=== PATIENT | female | born 1955 | race Caucasian/White ===

== ENCOUNTER 2020-04-02 08:37 | Outpatient (CLI) | payer OTHER, SELFPAY ==
--- NOTE | 2020-04-02 08:41 | ECG_ITS ---
Measurements Intervals Black Rate: 82 P: 55 WI: 182 QRS: 109 QRSD: 149 T: -6 QT: 405 QTc: 473 Interpretive Statements SINUS RHYTHM RIGHT BUNDLE BRANCH BLOCK INFERIOR INFARCT, AGE INDETERMINATE ABNORMAL ECG Electronically Signed On 04-02-2020 9:09:59 CDT by Wale Brand D.O.
[2020-04-02 09:13] LABS: Hematocrit 38.8 % (37.0-47.0); Hemoglobin 13.1 g/dL (12.0-15.0)
[2020-04-02 09:28] LABS: Anion Gap 6 mmol/L (8-16); Blood Urea Nitrogen 11 mg/dL (7-17); Calcium 9.8 mg/dL (8.4-10.2); Carbon Dioxide 30 mmol/L (22-30); Chloride 100 mmol/L (98-107); Estimated Glomerular Filt Rate > 60; Glucose 85 mg/dL (65-105); Potassium 4.1 mmol/L (3.4-5.0); Sodium 136 mmol/L (137-145)
== END 2020-04-02 08:38 | disposition home or self-care (01) ==
PROVIDERS: Anesthesiology; Visit Provider Surgery Plastic and Reconstructive Surgery
DX: Z01.818 Encounter for other preprocedural examination (principal); I10 Essential (primary) hypertension; R94.31 Abnormal electrocardiogram [ECG] [EKG]; Z79.899 Other long term (current) drug therapy; Z98.890 Other specified postprocedural states
CPT/HCPCS: 36415; 80048; 85014; 85018; 93005

== ENCOUNTER 2020-04-04 07:22 | Outpatient (CLI) | payer OTHER, SELFPAY ==
[2020-04-04 14:01] LABS: SARS-CoV-2 RNA PCR Negative
== END 2020-04-04 07:23 | disposition home or self-care (01) ==
LOC: ANHCOVIDDT 07:23
PROVIDERS: Visit Provider Surgery Plastic and Reconstructive Surgery
DX: Z01.812 Encounter for preprocedural laboratory examination (principal); Z20.828 Contact with and (suspected) exposure to other viral communicable diseases
CPT/HCPCS: 87635; C9803; U0003

== ENCOUNTER 2020-04-07 01:39 | Day surgery (SDC) | payer OTHER, SELFPAY ==
[2020-04-01 15:02] VITALS: BMI 24.5
[2020-04-07] VITALS (16 sets, daily range): BP systolic 101–158; BP diastolic 39–103; PULSE 80–101; RESP 12–28; TEMP 35.6–37.1; O2SAT 95–100
[2020-04-07 06:28] LABS: Urine Cotinine NEGATIVE
[2020-04-07] MEDS: LACTATED RINGERS 1,000 ML 30 ML IV CONT ×2 (06:45→13:51)
--- NOTE | 2020-04-07 06:48 | WPDHPUPDATE1 ---
History and Physical Update Update Date/Time: 04/07/20 06:48 History and Physical has been reviewed, including an updated exam of the patient. There are NO changes in the patient's condition. Today we had a lengthy discussion about realistic expectations. What we can and cannot accomplish. Risks, benefits, and alternatives have been discussed and questions answered. This included but was not limited to rate associated with this procedure. I wanted to be sure she was well informed prior to proceeding and she was able to repeat this information to me including rate of procedure. Patient agrees to proceed with procedure and would like to proceed.
[2020-04-07 06:55] LABS: Glucose Point of Care 102 (65-105)
--- NOTE | 2020-04-07 07:09 | WPDANESEPPF ---
Anes - Initial Pre Proc Eval Procedure: Operation Date: 04/07/20 07:30 Proposed Procedures p Posterior Body Lift, Bilateral Medial Thigh Lift, Estonian Butt Lift - Eloy Marquez MD s Mid Back Bra Line Skin Excision - Eloy Marquez MD Date/Time: 04/07/20 07:09 Surgeon: Eloy Marquez MD Pre Op Diagnosis: Skin Laxity Patient Data Age: 64 Gender: F Height: 5 ft 6 in Weight: 69 kg Allergies Allergy/AdvReac Type Severity Reaction Status Date / Time adhesive tape Allergy Rash Verified 04/01/20 14:51 Sulfa (Sulfonamide Allergy rash Verified 04/01/20 14:51 Antibiotics) codeine AdvReac Migraine Verified 04/01/20 14:51 Home Medications Medication Instructions Recorded Confirmed Type Bifidobacterium infantis 4 mg 4 mg PO DAILY 08/26/19 04/01/20 History capsule cetirizine 5 mg-pseudoephedrine ER 1 tablet PO QAM 08/26/19 04/01/20 History 120 mg tablet,extended release,12hr famotidine 20 mg tablet 20 mg PO QAM 08/26/19 04/01/20 History hydrochlorothiazide 25 mg tablet 25 mg PO QAM 08/26/19 04/01/20 History lisinopril 10 mg tablet 10 mg PO QAM 08/26/19 04/01/20 History nabumetone 500 mg tablet 500 mg PO BID 08/26/19 04/01/20 History pantoprazole 40 mg tablet,delayed 40 mg PO QAM 08/26/19 04/01/20 History release potassium chloride 10 mEq 10 meq PO DAILY 08/26/19 04/01/20 History capsule,extended release rizatriptan 10 mg tablet 10 mg PO ONCE PRN 08/26/19 04/01/20 History albuterol sulfate 2 puff INHALATION Q4-6H PRN 04/01/20 04/01/20 History docusate sodium 100 mg capsule 100 mg PO DAILY #14 cap 04/03/20 Rx ondansetron HCl 4 mg tablet 4 mg PO Q8H #28 tablet 04/03/20 Rx hydrocodone 10 mg-acetaminophen 1 tablet PO Q6H PRN #15 tablet 04/06/20 04/06/20 Rx 325 mg tablet Laboratory Tests 04/07/20 04/07/20 06:13 06:49 POC Capillary Glucose 102 mg/dl mg/dl (65-105) Cotinine Negative Patient hx anesthesia problems: post op nausea/vomiting Family hx anesthesia problems: none PMFSH Past Medical History Medical History History of skin cancer of unknown type unknown multiple excisions Hx of migraines Hypertension Surgical History Surgical History History of breast augmentation 1989 and 1999 History of carpal tunnel release of both wrists History of cholecystectomy 2006 History of cosmetic plastic surgery Breast Augmentation 1989, 1999 Lift Style Face Lift 2008 Lipo abd 2009 upper abd skin excision 2009 History of elbow surgery cubital - 2016 History of hip replacement, total 2017 History of hysterectomy 1984 History of melanoma excision back History of oral surgery 2008 History of rotator cuff surgery left - 2016 History of spinal surgery disctectomy 2018 vertebroplasty - 2015 History of tonsillectomy 1973 Social History Social History Smoking status: Never smoker Alcohol intake: current Drinks per week: 3 Alcohol use details: WINE Substance use: never Living arrangements: with family Spiritual care concerns: No Anes - Eval Final PreProcedure Day of Procedure 04/07/20 07:09 Patient weight: normal Heart: regular rate and rhythm Lungs: clear to auscultation Airway: Mallampati scale class II Neurological: alert and oriented Last oral intake: >/= 8 hours ASA classification: II Emergent: no Anesthetic plan: proceed Anesthesia type and monitoring: general ETT and standard monitoring Informed Consent: The patient's anesthetic plan and its attendant risks and benefits were discussed with the patient/family/POA. Questions were solicited and answers provided to the satisfaction of the patient/family/POA.
[2020-04-07] MEDS: SCOPOLAMINE 1.5 MG PATCH TRANSDERM (07:25)
[2020-04-07] MEDS: ceFAZolin 2 GM/D5W 50 ML 2 GM/50 ML BAG IVPB (07:31)
--- NOTE | 2020-04-07 10:36 | SUR.OPER ---
Upper body Aiyana Hugger used during bilateral medial thigh lift. When patient was placed prone, Aiyana Hugger was placed under buttocks over bilateral legs with lower body Aiyana Hugger. Aiyana Hugger number 2 was used.
[2020-04-07] MEDS: ceFAZolin SODIUM 1 GM VIAL 2 GM IV PUSH (11:54)
--- NOTE | 2020-04-07 13:43 | P.OP_ITS ---
Procedure Note - Detailed Date of procedure: 04/07/20 Pre-op diagnosis: Skin Laxity Post-op diagnosis: same Procedure performed: 1. Bilateral medial thigh lift 2. Bra line / upper back excision 3. Posterior body lift (lower body lift) 4. BBL ( [place] butt lift) Description of procedure: Risks, benefits, alternatives were discussed in extensive detail preoperatively. I want her to be very realistic about the risks involved as well as expectations. She provided examples of the look she likes and explained to her that she has selected images that are not obtainable as most of these were significantly younger than her. She states she understands and she is very realistic about what can and cannot be accomplished. Made sure answered all of her questions to her satisfaction and consent obtained. She was marked in the preoperative holding area with her verification. She was taken to the operating room placed supine on the operating room table. Anesthesia provided by anesthesiology and prepped and draped in a standard sterile fashion. Surgical time-out was taken. I made stab incisions along the medial thigh and tumescent solution was used. I gave adequate time for hemostasis. I then used a 4 mm basket cannula based on the S.A.F.E. technique using a rolling pinch on the medial thigh and in particular the planned resection area completely deep fat in this area. I was saving the fat using a gravity separation device. I pinched to make sure the planned resection was appropriate. A 10 blade used to make the incision in a cut as you go strip avulsion technique from proximal to distal the tissue was completely removed in stapled into place. I then closed with 2-0 Vicryl followed by 3-0 strata fix in a running subcuticular 4-0 Monocryl and Steri-Strips. She was then transferred to a bed. We prepared and then placed her in a prone position on the table with care taken to protect of all pressure points. stab incisions were made using 11 blade along the planned resection areas. I tumesced with a tumescent solution the entire back. I then completed suction lipectomy again with a 4 mm basket cannula using principals of S.A.F.E. Technique. This was to a rolling pinch test. This also was saved in a gravity separation device. Once we had adequate separation the central portion of the tissue the fatty portion was used from the gravity separation device. He has some 50 cc syringes and injected using a 4 mm basket cannula on power. Made sure I states superficial well above the fascia. This was done to contour based on preoperative planning. One size happy with the contour 10 blade used to make the incision on posterior body lift as well as along the bra line. This tissue was resected and I closed in many layers to obliterate all space using a 2-0 Vicryl followed by 3-0 strata fix and running subcuticular 4-0 Monocryl. Tissue glue was placed.On the posterior body lift portion I did place a drain just superior to the gluteal cleft just prior to closure. Thighs were covered with top of foam and Steve wrap. I placed topical mom the back and used an Steve wrap. She was transferred to a bed in this soon as possible placed in a prone position. Anesthesia: [facility] Surgeon: Eloy Marquez MD Estimated blood loss (mL): 75 Urine output (mL): 400 Drains: Yes (15 griselda) Packing: No Pathology: none sent Complications: No immediate complications Condition: stable Disposition: PACU Findings: Lipoaspirate 1500cc Fat grafting to buttocks - R: 450cc L: 450cc
[2020-04-07] MEDS: HYDROmorphone HCL INJ (*CRX) 1 MG/ML SYR 0.5 MG IV PUSH ×3 (14:11→14:39)
--- NOTE | 2020-04-07 14:18 | SUR.PHASEI ---
Proned patient now that she is more awake.
--- NOTE | 2020-04-07 14:58 | SUR.PHASEI ---
PT C/O HER HAIR IN HER FACE. LAYING PRONE. SURGICAL HAT PLACED ON. PT KEEPS RUBBING FACE ON PILLOW. OFFERED HAIR BAND. PT REFUSED. ENCOURAGED PT TO NOT RUB FACE ON PILLOW DUE TO SWELLING OF EYES, LIPS, FACE. ICE CHIPS GIVEN
[2020-04-07] MEDS: LACTATED RINGERS 1,000 ML 125 ML IV CONT (16:13)
[2020-04-07] MEDS: ONDANSETRON INJ 4 MG/2 ML VIAL IV PUSH ×2 (16:25→20:36)
[2020-04-07] MEDS: MORPHINE SULFATE (*CRX) 2 MG/ML INJ IV PUSH ×4 (16:38→23:12)
--- NOTE | 2020-04-07 16:47 | OBPPTRN ---
Patient transferred to room #284 per bed. Oriented to unit, room, information board. Patient verbalizes understanding.
[2020-04-07] MEDS: ENOXAPARIN 40 MG/0.4 ML SYRINGE SUB-Q (20:36)
[2020-04-08] MEDS: MORPHINE SULFATE (*CRX) 2 MG/ML INJ IV PUSH ×3 (01:31→07:31)
[2020-04-08] MEDS: LACTATED RINGERS 1,000 ML 125 ML IV CONT (01:31)
[2020-04-08 03:23] VITALS: BP 105/57; PULSE 82; RESP 18; TEMP 36.9; O2SAT 98
[2020-04-08] MEDS: oxyCODONE/ACETAMINOPHEN (*CRX) 5-325 MG TABLET PO ×3 (04:32→12:17)
[2020-04-08] MEDS: ONDANSETRON INJ 4 MG/2 ML VIAL IV PUSH (04:32)
[2020-04-08 07:20] VITALS: BP 125/73; PULSE 101; RESP 18; TEMP 36.7; O2SAT 100
--- NOTE | 2020-04-08 08:18 | WPDPN ---
Progress Note: A&P Assessment and Plan (1) Encounter for cosmetic surgery: Code(s): Z41.1 - Encounter for cosmetic surgery Status: Acute Assessment and Plan: She is doing well after medial thigh lift, posterior body lift, bra roll excision, and BBL. Will plan for discharge home later today when tolerating p.o. ambulating pain controlled. Will increase her pain medication to 1 every 3 hours of Percocet. We had a lengthy discussion about the care after discharge. What monitor for. She is going to call with any questions or concerns. (2) History of cosmetic plastic surgery: Code(s): Z98.890 - Other specified postprocedural states Status: Acute (3) History of cholecystectomy: Code(s): Z90.49 - Acquired absence of other specified parts of digestive tract Status: Acute (4) History of hip replacement, total: Code(s): Z96.649 - Presence of unspecified artificial hip joint Status: Acute (5) History of hysterectomy: Code(s): Z90.710 - Acquired absence of both cervix and uterus Status: Acute (6) GERD (gastroesophageal reflux disease): Code(s): K21.9 - Gastro-esophageal reflux disease without esophagitis Status: Acute (7) History of melanoma excision: Code(s): Z98.890 - Other specified postprocedural states; Z85.820 - Personal history of malignant melanoma of skin Status: Acute Review of Systems Review of Systems: All systems reviewed & are unremarkable except as noted in HPI and below Exam Narrative: Exam Narrative: Legs with a little bit of drainage. Soft. Buttocks with good color and capillary refill. Other incisions are healing well. No calf tenderness. Negative Homans. She is laying prone. Const: General: comfortable, no acute distress, alert and awake; No acute distress Orientation/consciousness: oriented to person HENMT: Head: normal to inspection Ears: external ears normal General nose exam: Normal external nose present Face and sinus: normal facial exam Eyes: General: appearance normal, both eyes and all related structures Periorbital: periorbital findings normal Eyelids: eyelids normal Conjunctivae: conjunctivae normal Neck: Neck: normal visual inspection Chest: Chest palpation & inspection: normal inspection of the chest Resp: Effort & Inspection: normal respiratory effort and able to speak in complete sentences GI: Inspection: normal to inspection Neuro: General: oriented to person Psych: Appearance: grossly normal Mental Status: mental status grossly normal Objective Data Vital Signs Vital Signs: Vital Signs - 24 hr 04/07/20 13:51 04/07/20 14:05 04/07/20 14:20 Temperature 35.6 C L 36.5 C Pulse Rate 99 97 101 H Respiratory Rate 12 18 28 H Blood Pressure 134/89 137/62 158/103 H Pulse Oximetry 100 100 97 04/07/20 14:33 04/07/20 14:45 04/07/20 15:05 Temperature Pulse Rate 95 90 90 Respiratory Rate 16 16 17 Blood Pressure 123/61 116/67 129/56 L Pulse Oximetry 100 99 97 04/07/20 15:31 04/07/20 15:45 04/07/20 16:00 Temperature 36.7 C Pulse Rate 87 89 91 Respiratory Rate 16 Blood Pressure 131/56 L 101/39 L Pulse Oximetry 95 95 96 04/07/20 16:15 04/07/20 16:30 04/07/20 17:15 Temperature Pulse Rate 92 81 91 Respiratory Rate Blood Pressure 115/74 119/69 127/76 Pulse Oximetry 96 95 96 04/07/20 17:30 04/07/20 19:17 04/07/20 23:14 Temperature 36.8 C 36.9 C Pulse Rate 86 83 92 Respiratory Rate 20 20 Blood Pressure 122/63 126/68 112/65 Pulse Oximetry 98 100 98 04/08/20 03:23 04/08/20 07:20 Temperature 36.9 C 36.7 C Pulse Rate 82 101 H Respiratory Rate 18 18 Blood Pressure 105/57 L 125/73 Pulse Oximetry 98 100 Intake/Output Intake/Output: Intake & Output 04/05/20 04/06/20 04/07/20 04/08/20 23:59 23:59 23:59 23:59 Intake Total 350 1400 Output Total 520 250 Balance -170 1150 Meds/Results Medications: Active Medications
--- NOTE | 2020-04-08 08:27 | PM.DS ---
DS: Admitting Diagnosis Admitting Diagnosis Admitting Diagnosis: Skin Laxity DS: Discharge Diagnosis Discharge Diagnosis (1) Encounter for cosmetic surgery: Code(s): Z41.1 - Encounter for cosmetic surgery Status: Acute Assessment and Plan: s/p Medial thigh lift, posterior body lift, bra roll excision, [place] butt lift. DS: Summary Time Spent with Patient Time attestation: Total time spent providing and/or coordinating discharge services:20 Exam Narrative: Exam Narrative: Legs with a little bit of drainage. Soft. Buttocks with good color and capillary refill. Other incisions are healing well. No calf tenderness. Negative Homans. She is laying prone. Const: General: comfortable, no acute distress, alert and awake; No acute distress Orientation/consciousness: oriented to person HENMT: Head: normal to inspection Ears: external ears normal General nose exam: Normal external nose present Face and sinus: normal facial exam Eyes: General: appearance normal, both eyes and all related structures Periorbital: periorbital findings normal Eyelids: eyelids normal Conjunctivae: conjunctivae normal Neck: Neck: normal visual inspection Chest: Chest palpation & inspection: normal inspection of the chest Resp: Effort & Inspection: normal respiratory effort and able to speak in complete sentences GI: Inspection: normal to inspection Neuro: General: oriented to person Psych: Appearance: grossly normal Mental Status: mental status grossly normal Discharge Plan Discharge Patient Disposition: Home, Self-Care Discharge Instructions: POST OPERATIVE DISCHARGE INSTRUCTIONS ELOY MARQUEZ M.D. [facility] [address] [place] [address] [address] for 24 hours after anesthesia and while you are taking pain medication. Take all prescribed medication as directed Diet as tolerated. No lifting or activity that raises blood pressure for 48 hours. Regular walking / ambulation. No showering until directed to. Once you shower do not take pain medication before showering as the combination of medication and heat may cause you to feel dizzy or pass out. No pools or tubs for 2 weeks. Call with any questions or concerns. No sitting or laying on buttocks for 2 weeks. Remove the Scopolamine patch that was placed behind your ear in 72 hours or less. Wash your hands after touching. Dressing Care: Wrap legs 23 hours per day with KAYDEN wraps. Continue binder for gentle back compression. If you have any questions or concerns, please call the office . If it is after hours you will be directed to the secondary special education teacher exchange. Shortness of breath, chest pain, or other medical emergency dial 911 / proceed to the Emergency Room. Stand Alone Forms: General Discharge Instructions Follow-up/Referrals: Eloy Marquez MD [Physician] - 1 Week Discharge Medications: New oxycodone-acetaminophen 5-325 mg Tablet 1 - 2 tablet PO Q6H PRN (Reason: Pain) Qty: 15 RF: 0 Continued lisinopril 10 mg tablet 10 mg PO QAM RF: 0 hydrochlorothiazide 25 mg tablet 25 mg PO QAM RF: 0 potassium chloride 10 mEq capsule, extended release 10 meq PO DAILY RF: 0 pantoprazole 40 mg tablet,delayed release (DR/EC) 40 mg PO QAM RF: 0 famotidine 20 mg tablet 20 mg PO QAM RF: 0 rizatriptan 10 mg tablet 10 mg PO ONCE PRN (Reason: Migraine Headache) RF: 0 Align 4 mg capsule 4 mg PO DAILY RF: 0 cetirizine-pseudoephedrine [Zyrtec-D] 5-120 mg tablet extended release 12 hr 1 tablet PO QAM RF: 0 nabumetone 500 mg tablet 500 mg PO BID RF: 0 albuterol sulfate 90 mcg/actuation HFA aerosol inhaler 2 puff INHALATION Q4-6H PRN (Reason: Dyspnea) RF: 0 ondansetron HCl [Zofran] 4 mg tablet 4 mg PO Q8H Qty: 28 RF: 0 Held hydrocodone-acetaminophen 10-325 mg tablet 1 tablet PO Q6H PRN (Reason:
[2020-04-08] MEDS: hydroCHLOROthiazide 25 MG TABLET PO (08:37)
[2020-04-08] MEDS: lisinopriL 10 MG TABLET PO (08:39)
[2020-04-08] MEDS: POTASSIUM CHLORIDE 10 MEQ TABLET.ER PO (08:39)
[2020-04-08] MEDS: FAMOTIDINE 20 MG TABLET PO (08:40)
[2020-04-08] MEDS: DOCUSATE SODIUM 100 MG CAPSULE PO (08:40)
[2020-04-08] MEDS: PANTOPRAZOLE 40 MG TABLET PO (08:41)
--- NOTE | 2020-04-08 12:37 | WPDANESPN ---
Anes - Prog Note Post-Op Date/Time: 04/08/20 12:37 Cardiovascular status: normal Respiratory status: normal Airway patency: baseline Mental status: baseline Post-Op hydration status: normal Vital Signs: Last Vital Signs Temp 36.7 C 04/08/20 07:20 Pulse 101 H 04/08/20 07:20 Resp 18 04/08/20 07:20 BP 125/73 04/08/20 07:20 Pulse Ox 100 04/08/20 07:20 Pain Score (VAS): Patient rated pain prior to PRN pain medication as 10/10 on self reported pain scale. Patient up at bedside at time of assessment. Following PRN medication patient stated pain more tolerable. Discussed prn pain schedule with patient and nurse, patient appeared satisfied with current regiment. Discussed early ambulation and use of incentive spirometer. I/O: Intake & Output 04/07/20 04/08/20 04/08/20 23:59 07:59 15:59 Intake Total 1400 Output Total 250 250 Balance 1150 -250 Post-procedural complaints: none (discussed pain management with patient and RN. ) Patient Feedback: Patient satisfied with anesthetic care.
== END 2020-04-08 14:55 | disposition home or self-care (01) ==
LOC: ANHSURGERY 07:33 → ANHOB2 15:59
PROVIDERS: Visit Provider Surgery Plastic and Reconstructive Surgery
PROC: (CPT 15832; principal; 2020-04-07 07:30)
PROC: (CPT 15833; 2020-04-07 07:30)
DX: Z41.1 Encounter for cosmetic surgery (principal); I10 Essential (primary) hypertension; K21.9 Gastro-esophageal reflux disease without esophagitis; Z96.649 Presence of unspecified artificial hip joint; Z90.710 Acquired absence of both cervix and uterus; Z79.899 Other long term (current) drug therapy; Z85.820 Personal history of malignant melanoma of skin; Z90.49 Acquired absence of other specified parts of digestive tract; Z98.890 Other specified postprocedural states
CPT/HCPCS: 15833; 15879; 15877; 15839; 80307; 99199; A9270; C9290; J0131; J0171; J0330; J0690; J1100; J1170; J1200; J1650; J2250; J2270; J2405; J2704; J3010; J7120

== ENCOUNTER 2020-08-24 08:54 | Outpatient (CLI) | payer OTHER, SELFPAY ==
[2020-08-24 09:14] LABS: Hematocrit 37.4 % (37.0-47.0); Hemoglobin 12.6 g/dL (12.0-15.0)
[2020-08-24 09:26] LABS: Anion Gap 6 mmol/L (8-16); Blood Urea Nitrogen 16 mg/dL (7-17); Calcium 9.9 mg/dL (8.4-10.2); Carbon Dioxide 30 mmol/L (22-30); Chloride 104 mmol/L (98-107); Estimated Glomerular Filt Rate > 60; Glucose 106 mg/dL (65-105); Potassium 3.9 mmol/L (3.4-5.0); Sodium 140 mmol/L (137-145)
== END 2020-08-24 08:55 | disposition home or self-care (01) ==
LOC: ANHSURGERY 08:58
PROVIDERS: Anesthesiology; Visit Provider Surgery Plastic and Reconstructive Surgery
DX: Z01.818 Encounter for other preprocedural examination (principal); Z79.899 Other long term (current) drug therapy
CPT/HCPCS: 36415; 80048; 85014; 85018

== ENCOUNTER → 2020-08-29 05:45 | Outpatient (CLI) | payer OTHER, SELFPAY ==
[2020-08-29 19:11] LABS: SARS-CoV-2 RNA PCR Negative
== END ==
PROVIDERS: Visit Provider Surgery Plastic and Reconstructive Surgery
DX: Z01.812 Encounter for preprocedural laboratory examination (principal); Z20.822 Contact with and (suspected) exposure to COVID-19
CPT/HCPCS: C9803; U0003; U0005

== ENCOUNTER 2020-09-01 00:35 | Day surgery (SDC) | payer OTHER, SELFPAY ==
[2020-08-20 14:42] VITALS: BMI 23.4
[2020-09-01] VITALS (15 sets, daily range): BP systolic 127–159; BP diastolic 65–92; PULSE 71–92; RESP 12–20; TEMP 36.3–37.6; O2SAT 94–100
--- NOTE | 2020-09-01 06:35 | WPDHPUPDATE1 ---
History and Physical Update Update Date/Time: 09/01/20 06:35 History and Physical has been reviewed, including an updated exam of the patient. There are NO changes in the patient's condition. Risks, benefits, and alternatives have been discussed and questions answered. Patient agrees to proceed with procedure.
--- NOTE | 2020-09-01 06:52 | P.OP_ITS ---
Procedure Note - Detailed Date of procedure: 09/01/20 Pre-op diagnosis: Skin Laxity Localized adiposity Post-op diagnosis: same Procedure performed: 1. Bilateral brachioplasty 2. Mons lift 3. Suction lipectomy abdomen Description of procedure: Preoperatively risks, benefits, alternatives were discussed in extensive detail. I want her to be very realistic about the risks involved as well as expectations. She has significant preoperative contour regular Muna abdomen from previous treatment. I had a lengthy conversation about realistic expectations of outcomes, the risks involved. I want her to be well informed this is a complex procedure with limitations to the outcome and significant risk involved. She must be willing to accept this to proceed. She is. All questions were answered to her satisfaction and consent obtained. She was marked in the preoperative holding area with her verification. Taken to the operating room placed supine on the operating room table. Anesthesia was provided by anesthesiology and prepped and draped in a standard sterile fashion. Surgical time-out was taken. I began in the arms. Stab incisions were made and I tumesced with a tumescent solution. Once adequate time for hemostasis I used a 4 mm basket cannula to complete suction lipectomy de fattening the central portion planned to be removed. A strip avulsion technique was completed from proximal to distal s tapling as we went. I then closed using 2-0 Vicryl followed by 3-0 strata fix and 4-0 Monocryl. This is followed by Steri-Strips. I proceeded to the abdomen. A thorough abdominal examination. Stab incision was made and I tumesced the abdomen as well as the mons region. Suction lipectomy was completed using a modification of S.A.F.E. technique in multiple planes and passes. There is de fattening of the Mons and primarily separation in equalization of the abdomen in order to get a good contour. In the upper abdomen there was a small volume of the fat in completed as well. I did this to a rolling pinch test in an effort to get a smooth contour to the best my ability. Ten blade was used to make the lower abdominal incision. I excised a wedge in order to elevate the mons based on her preoperative planning. This was closed with 2-0 Vicryl followed by 3-0 strata fix in a running subcuticular 4-0 Monocryl and tissue glue. Dressings were placed. She was woken taken to PACU without difficulty. All instrument sponge counts were correct at the end of the case. Anesthesia: [facility] Surgeon: Eloy Marquez MD Estimated blood loss (mL): 30 Drains: No Packing: No Pathology: none sent Complications: No immediate complications Condition: stable Disposition: PACU Findings: Lipoaspirate (total volume arms + abdomen) 1,000 cc
[2020-09-01 06:55] LABS: Urine Cotinine NEGATIVE
[2020-09-01] MEDS: LACTATED RINGERS 1,000 ML 30 ML IV CONT ×2 (07:15→11:45)
--- NOTE | 2020-09-01 07:22 | WPDANESEPPF ---
Anes - Initial Pre Proc Eval Procedure: Operation Date: 09/01/20 07:30 Proposed Procedures p Brachioplasty - Eloy Marquez MD s Abdominal And Mons Pubis Liposuction - Eloy Marquez MD s Mons Pubis Lift - Eloy Marquez MD Date/Time: 09/01/20 07:22 Surgeon: Eloy Marquez MD Pre Op Diagnosis: Skin Laxity Patient Data Age: 64 Gender: F Height: 5 ft 6 in Weight: 65.9 kg Allergies Allergy/AdvReac Type Severity Reaction Status Date / Time adhesive tape Allergy Severe Rash Verified 08/20/20 14:28 Sulfa (Sulfonamide Allergy Mild rash Verified 09/01/20 07:19 Antibiotics) codeine AdvReac Intermediate Migraine Verified 09/01/20 07:19 SURGICAL GLUE AdvReac Severe PEDIATRIC CLINICAL NURSE SPECIALIST Uncoded 09/01/20 07:19 SKIN IRRITATION Home Medications Medication Instructions Recorded Confirmed Type Bifidobacterium infantis 4 mg 4 mg PO DAILY 08/26/19 09/01/20 History capsule cetirizine 5 mg-pseudoephedrine ER 1 tablet PO QAM 08/26/19 09/01/20 History 120 mg tablet,extended release,12hr famotidine 20 mg tablet 20 mg PO QAM 08/26/19 09/01/20 History hydrochlorothiazide 25 mg tablet 25 mg PO QAM 08/26/19 09/01/20 History lisinopril 10 mg tablet 10 mg PO QAM 08/26/19 09/01/20 History pantoprazole 40 mg tablet,delayed 40 mg PO QAM 08/26/19 08/20/20 History release potassium chloride 10 mEq 10 meq PO DAILY 08/26/19 08/20/20 History capsule,extended release rizatriptan 10 mg tablet 10 mg PO ONCE PRN 08/26/19 08/20/20 History albuterol sulfate 2 puff INHALATION Q4-6H PRN 04/01/20 08/20/20 History hydrocodone 10 mg-acetaminophen 1 tablet PO Q6H PRN #15 tablet 04/06/20 09/01/20 Rx 325 mg tablet oxycodone-acetaminophen 5 mg-325 1 - 2 tablet PO Q6H PRN #15 tablet 08/18/20 08/20/20 Rx mg tablet Laboratory Tests 09/01/20 06:13 Cotinine Negative Patient hx anesthesia problems: none Family hx anesthesia problems: none PMFSH Past Medical History Medical History (Updated 08/18/20 @ 13:29 by Eloy Marquez MD) History of skin cancer of unknown type unknown multiple excisions Hx of migraines Hypertension Surgical History Surgical History History of breast augmentation 1989 and 1999 History of carpal tunnel release of both wrists History of cholecystectomy 2005 History of cosmetic plastic surgery Breast Augmentation 1989, 1999 Lift Style Face Lift 2008 Lipo abd 2009 upper abd skin excision 2009 History of elbow surgery cubital - 2016 History of hip replacement, total 2017 History of hysterectomy 1984 History of melanoma excision back History of oral surgery 2008 History of rotator cuff surgery left - 2016 History of spinal surgery disctectomy 2018 vertebroplasty - 2015 History of tonsillectomy 1973 Social History Social History Smoking status: Never smoker Second hand tobacco smoke exposure: No Alcohol intake: current Drinks per week: 3 Substance use: never Substance use type: does not use Living arrangements: with family Spiritual care concerns: No Anes - Eval Final PreProcedure Day of Procedure 09/01/20 07:22 Patient weight: normal Heart: regular rate and rhythm Lungs: clear to auscultation Airway: Mallampati scale class II Neurological: alert and oriented Last oral intake: >/= 8 hours ASA classification: II Emergent: no Anesthetic plan: proceed Anesthesia type and monitoring: general ETT and standard monitoring Informed Consent: The patient's anesthetic plan and its attendant risks and benefits were discussed with the patient/family/POA. Questions were solicited and answers provided to the satisfaction of the patient/family/POA.
[2020-09-01] MEDS: SCOPOLAMINE 1.5 MG PATCH TRANSDERM (07:35)
[2020-09-01] MEDS: ceFAZolin 2 GM/D5W 50 ML 2 GM/50 ML BAG IVPB (07:41)
--- NOTE | 2020-09-01 11:13 | SUR.OPER ---
EBL:30cc, urine total before colin removal:225cc
[2020-09-01] MEDS: fentaNYL CITRATE INJ (*CRX) 100 MCG/2 ML VIAL 25 MCG IV PUSH ×8 (11:59→12:40)
--- NOTE | 2020-09-01 12:41 | SUR.PHASEI ---
FREQUENT PVC'S NOTED ON PATIENT'S MONITOR. DR. JOSEPH CALLED. HR AND BP STABLE. PT AWAKE AND ALERT. NO SOB. MILD LEFT LOWER ANTERIOR CHEST PAIN 09/16. DR. JOSEPH WILL COME SEE PT. DR. DO CALLED RE: NEEDING ADMISSION ORDERS.
[2020-09-01] MEDS: HYDROmorphone HCL INJ (*CRX) 1 MG/ML SYR 0.5 MG IV PUSH (13:10)
--- NOTE | 2020-09-01 13:19 | SUR.PHASEI ---
1300 - DR. JOSEPH AT BEDSIDE TALKING WITH PT IN REGARDS TO EKG READING. NO ORDERS RECEIVED
[2020-09-01] MEDS: ONDANSETRON INJ 4 MG/2 ML VIAL IV PUSH (13:21)
--- NOTE | 2020-09-01 13:38 | SUR.PHASEI ---
2619 - ATTEMPTED TO CALL DR DO TO CLARIFY MEDS. NOT IN OFFICE AT THIS TIME. HE DID NOT ANSWER CELL PHONE. PHARMACY AWARE
--- NOTE | 2020-09-01 14:09 | PC.NURSE ---
This patient, Jeana Manning, was received from PACU on 09/01/20 at 1409. Patient oriented to unit policies and routines.
[2020-09-01] MEDS: MORPHINE SULFATE (*CRX) 2 MG/ML INJ IV PUSH ×2 (15:35→18:01)
[2020-09-01] MEDS: ENOXAPARIN 40 MG/0.4 ML SYRINGE SUB-Q (18:00)
[2020-09-01] MEDS: oxyCODONE/ACETAMINOPHEN (*CRX) 5-325 MG TABLET PO ×2 (20:18→21:09)
[2020-09-02] MEDS: MORPHINE SULFATE (*CRX) 2 MG/ML INJ IV PUSH ×2 (03:10→11:13)
[2020-09-02 03:58] VITALS: BP 137/75; PULSE 90; RESP 16; TEMP 36.9
[2020-09-02] MEDS: oxyCODONE/ACETAMINOPHEN (*CRX) 5-325 MG TABLET PO (06:53)
--- NOTE | 2020-09-02 06:58 | WPDPN ---
Progress Note: A&P Assessment and Plan (1) Encounter for cosmetic surgery: Code(s): Z41.1 - Encounter for cosmetic surgery Status: Acute Assessment and Plan: Doing well today. Will discharge home. Follow up in 1 week. Today we spent more than 20 minutes discussing the care. What monitor for. All questions were answered to her satisfaction today. We will see her back. She will call with any questions or concerns in the meantime. 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 No hematoma. No seroma. Normal sensation in the hands. Full range of motion of the hands. Abdomen soft. No signs of infection. No hematoma. No seroma. No calf tenderness. Negative Homans. Const: General: comfortable, no acute distress, alert and awake; No acute distress Orientation/consciousness: oriented to person HENMT: Head: normal to inspection Ears: external ears normal General nose exam: Normal external nose present Face and sinus: normal facial exam Eyes: General: appearance normal, both eyes and all related structures Periorbital: periorbital findings normal Eyelids: eyelids normal Conjunctivae: conjunctivae normal Neck: Neck: normal visual inspection Chest: Chest palpation & inspection: normal inspection of the chest Resp: Effort & Inspection: normal respiratory effort and able to speak in complete sentences GI: Inspection: normal to inspection Neuro: General: oriented to person Psych: Appearance: grossly normal Mental Status: mental status grossly normal Objective Data Vital Signs Vital Signs: Vital Signs - 24 hr 09/01/20 11:45 09/01/20 12:00 09/01/20 12:15 Temperature 36.3 C L Pulse Rate 92 84 87 Respiratory Rate 20 14 16 Blood Pressure 159/85 H 157/75 H 139/92 H Pulse Oximetry 100 100 100 09/01/20 12:30 09/01/20 12:45 09/01/20 13:00 Temperature Pulse Rate 84 84 89 Respiratory Rate 14 19 12 Blood Pressure 127/91 H 140/81 145/81 H Pulse Oximetry 98 100 98 09/01/20 13:15 09/01/20 13:30 09/01/20 13:45 Temperature Pulse Rate 85 86 77 Respiratory Rate 14 15 20 Blood Pressure 137/79 144/71 H 142/66 H Pulse Oximetry 94 97 100 09/01/20 14:00 09/01/20 14:15 09/01/20 16:00 Temperature 37.6 C Pulse Rate 78 88 88 Respiratory Rate 20 20 20 Blood Pressure 141/69 H 149/80 H Pulse Oximetry 99 98 98 09/01/20 21:00 09/01/20 23:30 09/02/20 03:58 Temperature 36.9 C 36.6 C 36.9 C Pulse Rate 71 80 90 Respiratory Rate 18 16 16 Blood Pressure 130/65 127/70 137/75 Pulse Oximetry 100 Intake/Output Intake/Output: Intake & Output 08/30/20 08/31/20 09/01/20 09/02/20 23:59 23:59 23:59 23:59 Intake Total 400 250 Output Total 400 900 Balance 0 -650 Meds/Results Medications: Active Medications Generic Name Dose Route Start Last Admin Trade Name Freq PRN Reason Stop Dose Admin Albuterol 2 puff 09/01/20 14:08 Albuterol Sulfate (*Sp) Aerosol 1 Puff INHALATION Q4-6H PRN Dyspnea Docusate Sodium 100 mg 09/01/20 21:00 Docusate Sodium 100 Mg Capsule PO Q12HR MICK Enoxaparin Sodium 40 mg 09/01/20 18:00 09/01/20 18:00 Enoxaparin 40 Mg/0.4 Ml Syringe SUB-Q 40 mg DAILY@1800 MICK Administration Famotidine 20 mg 09/02/20 09:00 Famotidine 20 Mg Tablet PO QAM MICK Hydrochlorothiazide 25 mg 09/02/20 09:00 Hydrochlorothiazide 25 Mg Tablet PO QAM MICK Lactated Ringer's 1,000 mls @ 125 mls/hr 09/01/20 13:00 Lr - Lactated Ringers Iv IV CONT .Q8H MICK Loratadine/Pseudoephedrine Sulfate 1 tab 09/02/20 09:00 Loratadine/Pseudoephedrine (*Crx) 10/240 Mg Tablet Er 24 Hr PO 10/02
--- NOTE | 2020-09-02 07:01 | PM.DS ---
DS: Admitting Diagnosis Admitting Diagnosis Admitting Diagnosis: Encounter for cosmetic surgery DS: Discharge Diagnosis Discharge Diagnosis (1) Encounter for cosmetic surgery: Code(s): Z41.1 - Encounter for cosmetic surgery Status: Acute Assessment and Plan: She underwent bilateral brachioplasty, suction lipectomy of abdomen with mons lift. DS: Summary Hospital Course Hospital Course: Patient underwent brachioplasty bilateral as well as suction lipectomy of abdomen and mons lift. Postop early she has done well. Pain controlled. Ambulating. Tolerating diet. Will plan for discharge home. Follow up in 1 week. Time Spent with Patient Time attestation: Total time spent providing and/or coordinating discharge services: 20 Exam Narrative: Exam Narrative: Arms are soft. No hematoma. No seroma. Normal sensation in the hands. Full range of motion of the hands. Abdomen soft. No signs of infection. No hematoma. No seroma. No calf tenderness. Negative Homans. Const: General: comfortable, no acute distress, alert and awake; No acute distress Orientation/consciousness: oriented to person HENMT: Head: normal to inspection Ears: external ears normal General nose exam: Normal external nose present Face and sinus: normal facial exam Eyes: General: appearance normal, both eyes and all related structures Periorbital: periorbital findings normal Eyelids: eyelids normal Conjunctivae: conjunctivae normal Neck: Neck: normal visual inspection Chest: Chest palpation & inspection: normal inspection of the chest Resp: Effort & Inspection: normal respiratory effort and able to speak in complete sentences GI: Inspection: normal to inspection Neuro: General: oriented to person Psych: Appearance: grossly normal Mental Status: mental status grossly normal Discharge Plan Discharge Patient Disposition: Home, Self-Care Discharge Instructions: POST OPERATIVE DISCHARGE INSTRUCTIONS ELOY MARQUEZ M.D. [facility] [address] [place] [address] [address] for 24 hours after anesthesia and while you are taking pain medication. Take all prescribed medication as directed Diet as tolerated. No lifting or activity that raises blood pressure for 48 hours. Regular walking / ambulation. No showering until directed to. Once you shower do not take pain medication before showering as the combination of medication and heat may cause you to feel dizzy or pass out. No pools or tubs for 2 weeks. Call with any questions or concerns. Dressing Care: May shower. Reapply compression to comfort and wear 23 hours per day. If you have any questions or concerns, please call the office . If it is after hours you will be directed to the manager simulation exchange. Shortness of breath, chest pain, or other medical emergency dial 911 / proceed to the Emergency Room. Stand Alone Forms: General Discharge Instructions Follow-up/Referrals: Eloy Marquez MD [Physician] - 1 Week Discharge Orders: Discharge Order (Routine); Ordered 09/02/20 Ordered By: Eloy Marquez Discharge Medications: Continued lisinopril 10 mg tablet 10 mg PO QAM RF: 0 hydrochlorothiazide 25 mg tablet 25 mg PO QAM RF: 0 potassium chloride 10 mEq capsule, extended release 10 meq PO DAILY RF: 0 pantoprazole 40 mg tablet,delayed release (DR/EC) 40 mg PO QAM RF: 0 famotidine 20 mg tablet 20 mg PO QAM RF: 0 rizatriptan 10 mg tablet 10 mg PO ONCE PRN (Reason: Migraine Headache) RF: 0 Align 4 mg capsule 4 mg PO DAILY RF: 0 cetirizine-pseudoephedrine [Zyrtec-D] 5-120 mg tablet extended release 12 hr 1 tablet PO QAM RF: 0 hydrocodone-acetaminophen 10-325 mg tablet 1 tablet PO Q6H PRN (Reason: Pain) Qty: 15 RF: 0 Hold Instructions: Resume on 04/18/20. oxycodone-acetaminophen 5-325 mg tablet 1 - 2 tablet PO Q6H PRN
--- NOTE | 2020-09-02 07:34 | WPDANESPN ---
Anes - Prog Note Post-Op Date/Time: 09/02/20 07:34 Cardiovascular status: normal Respiratory status: normal Airway patency: baseline Mental status: baseline Post-Op hydration status: normal Vital Signs: Last Vital Signs Temp 36.9 C 09/02/20 03:58 Pulse 90 09/02/20 03:58 Resp 16 09/02/20 03:58 BP 137/75 09/02/20 03:58 Pulse Ox 100 09/01/20 23:30 Pain Score (VAS): 3 I/O: Intake & Output 09/01/20 09/01/20 09/02/20 15:59 23:59 07:59 Intake Total 400 250 Output Total 400 900 Balance 0 -650 Post-procedural complaints: none Patient Feedback: Patient satisfied with anesthetic care.
[2020-09-02 07:49] VITALS: BP 148/66; PULSE 82; RESP 20; TEMP 36.5; O2SAT 98
[2020-09-02] MEDS: FAMOTIDINE 20 MG TABLET PO (10:10)
[2020-09-02] MEDS: hydroCHLOROthiazide 25 MG TABLET PO (10:10)
[2020-09-02] MEDS: PANTOPRAZOLE 40 MG TABLET PO (10:11)
[2020-09-02] MEDS: POTASSIUM CHLORIDE 10 MEQ TABLET.ER PO (10:11)
[2020-09-02] MEDS: LORATADINE/PSEUDOEPHEDRINE (*CRX) 10/240 MG TABLET ER 24 HR 1 TAB PO (10:11)
[2020-09-02] MEDS: DOCUSATE SODIUM 100 MG CAPSULE PO (10:12)
[2020-09-02] MEDS: lisinopriL 10 MG TABLET PO (12:18)
--- NOTE | 2020-09-02 13:06 | PC.NURSE ---
1031 Called Pharmacy for Lisinopril order to be sent up. Had to leave a message. 1113 pt wants to go home and stated she will just take her Lisinopril at home. 1218 pt being D/C'd home and still no Lisinopril so she will take it at home.
== END 2020-09-02 12:18 | disposition home or self-care (01) ==
LOC: ANHSURGERY 07:08 → ANHOB2 14:15
PROVIDERS: Visit Provider Surgery Plastic and Reconstructive Surgery
PROC: (CPT 15836; principal; 2020-09-01 07:30)
PROC: (CPT 15877; 2020-09-01 07:30)
PROC: (CPT 15836; 2020-09-01 07:30)
DX: Z41.1 Encounter for cosmetic surgery (principal); L57.4 Cutis laxa senilis; E65 Localized adiposity; I10 Essential (primary) hypertension; Z79.899 Other long term (current) drug therapy; Z91.048 Other nonmedicinal substance allergy status
CPT/HCPCS: 15836; 15830; 15878; 15877; 80307; 99199; A9270; C9290; J0171; J0330; J0690; J1100; J1170; J1200; J1650; J2250; J2270; J2405; J2704; J3010; J7120